=== PATIENT | male | born 2000 | race Caucasian/White ===

== ENCOUNTER 2021-04-16 16:28 | Emergency (ER) | payer OTHER ==
[~2021-04-16 16:28] MED LIST: BENTYL10 MG PO; IBUPROFEN800 MG PO; MIRALAX 238GM238 GM PO; NORCO 5-325 TA1 EACH PO; ZOFRAN4 MG SL
[2021-04-16 17:28] LABS: BASOPHIL 0.8 % (0-2); EOSINOPHIL 4.2 % (0-5); HCT 43.3 % (42.0-52.0); HGB 15.2 g/dl (13.2-18.0); LYMPHOCYTE 29.6 % (15-48); MCH 31.2 pg (25.0-31.0); MCHC 35.1 g/dL (32.0-36.0); MCV 88.9 fL (78.0-100.0); MONOCYTE 9.5 % (0-12); MPV 10.1 fL (6.0-9.5); NEUTROPHIL 55.9 % (41-80); NRBC 0; PLT 182 K/uL (150-400); RBC 4.87 M/uL (4.70-6.00); RDW 11.9 % (11.5-14.0); WBC 6.2 K/uL (4.0-10.5)
[2021-04-16 17:47] LABS: ALBUMIN 4.1 g/dL (3.4-5.0); BILIRUBIN - TOTAL 0.9 mg/dL (0.2-1.0); BUN/CREAT RATIO (CALC) 18.2 RATIO; CREATININE 0.77 mg/dL (0.67-1.17); GLOBULIN (CALCULATION) 2.9 g/dL
== END 2021-04-16 18:05 | disposition home or self-care (01) ==
LOC: FER 16:28
PROVIDERS: Emergency Medicine
DX: R07.89 Other chest pain (principal); F17.290 Nicotine dependence, other tobacco product, uncomplicated
CPT/HCPCS: 36415; 71046; 80053; 85025; 93005

== ENCOUNTER 2021-05-29 17:59 | Emergency (ER) | payer OTHER | END 2021-05-29 19:40 | disposition home or self-care (01) | LOC: FER 17:59 | DX: U07.1 COVID-19 (principal); Z02.79 Encounter for issue of other medical certificate | CPT/HCPCS: 99282; U0002 ==